=== PATIENT | female | born 1945 | race Caucasian/White ===

== ENCOUNTER 2024-07-03 11:01 | Outpatient (CLI) | payer MEDICARE, SELFPAY ==
[2024-07-03 16:13] LABS: Coronavirus 19, PCR Not Detected (NotDetected); Influenza A, PCR Not Detected (NotDetected); Influenza B, PCR Not Detected (NotDetected)
[2024-07-03 16:34] LABS: Basophils % 0.6 % (0.1-2.0); Eosinophils # 0.1 K/mm3 (0.0-0.4); Eosinophils % 2.2 % (0.1-12.0); Hematocrit 45.8 % (37.0-47.0); Hemoglobin 15.6 g/dL (12.2-16.2); Lymphocytes # 1.1 K/mm3 (0.7-4.5); Lymphocytes % 18.1 % (10-50); Mean Corpuscular HGB Conc 34.1 g/dL (31.8-35.4); Mean Corpuscular Hemoglobin 30.1 pg (27.0-31.2); Mean Corpuscular Volume 88.4 fl (81-99); Mean Platelet Volume 7.9 fl (7.4-10.4); Monocytes # 0.6 K/mm3 (0.1-1.0); Monocytes % 8.8 % (1.7-9.3); Neutrophils # 4.4 K/mm3 (1.8-7.8); Neutrophils % 70.2 % (37.0-80.0); Platelet Count 283 K/mm3 (142-424); Red Blood Count 5.18 M/mm3 (4.20-5.40); Red Cell Distribution Width 14.4 % (11.5-17.5); White Blood Count 6.2 K/mm3 (4.8-10.8)
[2024-07-03 17:10] LABS: Albumin Level 4.6 g/dl (3.5-5.0); Chloride 105 mmol/L (98-107); Potassium 4.2 mmoL/L (3.5-5.1)
[2024-07-03 17:12] LABS: Alanine Aminotransferase 14 U/L (12-78); Aspartate Amino Transferase 26 U/L (14-36); Blood Urea Nitrogen 13 mg/dl (7-17); Carbon Dioxide 27 mmol/L (22.0-30.0); Estimated Glomerular Filt Rate 53 ml/min (>60); GFR (African American) 65 ML/MIN (>60)
[2024-07-03 17:13] LABS: Albumin/Globulin Ratio 1.5 (1.1-1.8); Alkaline Phosphatase 123 U/L (38-126); Bilirubin,Total 0.7 mg/dl (0.2-1.3); Calcium 10.2 mg/dl (8.4-10.2); Globulin 3.1 g/dL (1.3-3.2); Glucose 117 mg/dl (74-100); Total Protein,Serum 7.7 g/dl (6.3-8.2)
[2024-07-03 17:25] LABS: Anion Gap 11.2 mEq/L (5-15); Sodium 139 mmol/L (136-145)
[2024-07-03 17:36] LABS: 25-OH Vitamin D, Total 22.9 ng/mL (30-100)
[2024-07-04 03:34] LABS: Thyroid Stimulating Hormone 4.06 uIU/mL (0.465-4.68)
== END 2024-07-03 23:59 | disposition home or self-care (01) ==
LOC: LAB.DROPOF 07-04 11:02
PROVIDERS: PCP Family Medicine; Visit Provider Family Medicine
DX: E03.9 Hypothyroidism, unspecified (principal); R06.02 Shortness of breath; R05.9 Cough, unspecified; E55.9 Vitamin D deficiency, unspecified
CPT/HCPCS: 80053; 82306; 84443; 85025; 87636

== ENCOUNTER 2024-11-15 11:37 | Outpatient (CLI) | payer MEDICARE, SELFPAY ==
--- NOTE | 2024-11-15 | CA_ITS ---
APPROVED REPORT Exam: Pharmacologic Technologist: Leeann Hanna Ht: 5 ft 6 in Wt: 163 lbs BSA: 1.83 m2 HR: 71 bpm BP: 153/83 mmHg Stress Test Details Test: Lexiscan HR Resting HR: 71 bpm Max Heart Rate (APMHR): 139.950972 bpm Max HR Achieved: 89 bpm Target HR (85% APMHR): 118.307339 bpm % of APMHR: 64.03 Recovery HR: 86 bpm BP Resting BP: 153.0/83.0 mmHg Max BP: 163.0/82.0 mmHg Recovery BP: 159.0/82.0 mmHg ECG Resting ECG: Normal sinus rhythm Stress ECG Conclusion Symptoms: None Arrhythmias/Ectopy: Rare multifocal PVC's ST-T Changes: < 1.[address] segment changes Conclusion: Non-diagnostic Lexiscan stress test. Electronically signed by : Crystal Mcnamara MD 11/16/2024 12:35:28
--- NOTE | 2024-11-15 11:43 | NM_ITS ---
APPROVED REPORT Exam: Nuclear Stress Test Indication: dysrhythmia, sob, palpitations, fatigue Patient Location: Outpatient Stress Tech: Leeann Hanna Ht: 5 ft 6 in Wt: 160 lbs Bra Size: d HR: 71 bpm BP: 153/83 mmHg BSA: 1.82 m2 TID: 1.22 BMI: 25.8 History: dysrhythmia, sob, palpitations, fatigue Procedure: Patient received 0.4 mg of intravenous Lexiscan, resting heart rate 71 bpm, resting blood pressure 153/83 mmHg, with Lexiscan maximum heart rate achieved was 89 bpm which is % of the maximum predicted heart rate and blood pressure was 163/80 mmHg. With Lexiscan, patient denied any complaint of chest pain. Cardiac Stress and Resting SPECT Images: Cardiac Stress and Resting SPECT images were obtained using technetium 99m Myoview 31.2 mCi stress and 10.17 mCi at rest. Resting and stress imaging in supine and prone positions demonstrate a medium sized, moderate, reversible perfusion defect in the basal lateral LV wall. There is also increase in transient ischemic dilatation ratio (TID 1.22), suggestive of possible multivessel disease or balanced ischemia. Gated imaging demonstrates normal global LV systolic function. LVEF is calculated at 50%. Conclusion: Medium sized, moderate, reversible perfusion defect in the basal lateral LV wall. Findings are suggestive of reversible ischemia. There is also increase in transient ischemic dilatation ratio (TID 1.22), suggestive of possible multivessel disease or balanced ischemia. Gated imaging demonstrates normal global LV systolic function. LVEF is calculated at 50%. Electronically signed by : Crystal Mcnamara MD 11/16/2024 12:30:29
[2024-11-15] MEDS: SODIUM CHLORIDE 0.9% 10ML SYR (RAD ONLY) 10 ML IV ×2 (12:05→13:45)
--- NOTE | 2024-11-15 12:20 | CA_ITS ---
APPROVED REPORT EXAM: Comprehensive 2D, Doppler, and color-flow Echocardiogram Seasonal Package Handler: Елена Lundberg RVT Ht: 5 ft 6 in Wt: 163lbs BSA: 1.83 BP: 147/79 mmHg Indications: DYSPENA,COPD,MURMUR,FATIGUE 2D Dimensions LA Volume 61.60 mL LA Volume Index 33.48 mL/m2 (M/F) 16-34 M-Mode Dimensions RVDd 2.25 cm (0.9-2.6) LA Diam 3.92 cm (1.9-4.0) LVDd 4.34 cm (3.5-5.7) LVDs 3.01 cm (3.5-5.7) IVSd 0.76 cm (0.6-1.1) PWd 0.56 cm (0.6-1.1) EF (Teich) 58.40% FS 30.60% EDV (Teich) 84.90 mL TAPSE 2.62 (<1.7) ESV (Teich) 35.30 mL LV Diastology E Decel Time 227 (160-240 msec) E/A Ratio 0.9 Aortic Valve ALEKSANDR Index 1.35 cm2/m2 AoV Peak Garirck. 161.0 (50-130 cm/s) AI PHT 667.00 ms AO Peak GR. 10.30 mmHg AO Mean GR. 5.40 (<5 mmHg) AO VTI 32.9 (18-25 cm) ALEKSANDR (VTI) 2.54 (2.5-4.5 cm2) Mitral Valve MV E Max Garrick. 94.0 (40-130 cm/s) MV A Velocity 106.0 (40-130 cm/s) E/A Ratio 0.89 MV PHT 66.0 ms Pulmonary Valve PV Peak Velocity 72.0 (50-150 cm/s) Tricuspid Valve TR P. Velocity 403.00 cm/s RAP Estimate 10.00 mmHg RVSP 74.90 mmHg Left Ventricle The left ventricle is normal size. The left ventricular systolic function is normal. The left ventricular ejection fraction is within the normal range. There is increased LV wall thickness. There is normal LV segmental wall motion. Transmitral Doppler flow pattern suggests impaired LV relaxation. LVEF is 55%. Right Ventricle The right ventricle is normal size. The right ventricular systolic function is normal. Atria The left atrium size is normal. The right atrium size is normal. 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 Aortic Valve The aortic valve is mildly thickened. There is no aortic valvular stenosis. Mild aortic regurgitation. Mitral Valve The mitral valve is normal in structure. No evidence of mitral valve stenosis. Trace mitral regurgitation. Tricuspid Valve Tricuspid valve is grossly normal in structure and function. Mild tricuspid regurgitation. Elevated RVSP 45-50 mmHg. Pulmonic Valve The pulmonary valve is normal in structure. Trace pulmonic regurgitation. Great Vessels The aortic root is normal in size. IVC is normal in size and collapses >50% with inspiration. Pericardium There is no pericardial effusion. Other Information Study Quality: Fair Conclusion Normal biventricular size and systolic function. Mild AI, mild TR. Elevated RVSP 45-50 mmHg. 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 Electronically signed by : Crystal Mcnamara MD 11/23/2024 23:03:48
[2024-11-15] MEDS: REGADENOSON 0.4MG/5ML SYRINGE 0.4 MG IV (13:45)
[2024-11-15] MEDS: ISOTOPE MYOVIEW (PER STUDY) 1 DOSE IV (14:18)
== END 2024-11-15 23:59 | disposition home or self-care (01) ==
LOC: RAD 11:38
PROVIDERS: PCP Family Medicine; Visit Provider Physician Assistant
DX: R06.00 Dyspnea, unspecified (principal); R01.1 Cardiac murmur, unspecified; R53.83 Other fatigue
CPT/HCPCS: 78452; 93017; 93018; 93306; A9502; J2785

== ENCOUNTER 2024-11-21 12:34 | Outpatient (CLI) | payer MEDICARE, SELFPAY ==
--- NOTE | 2024-11-21 12:37 | XR_ITS ---
FINAL REPORT CLINICAL HISTORY: dyspnea,fatigue FINDINGS: 2 views of the chest were obtained . The heart is normal in size. The mediastinum is within normal limits. There is mild scarring at the right lung base. Emphysematous changes are seen. The lungs are otherwise clear. There is no pneumothorax. Osseous structures are unremarkable. IMPRESSION: No acute cardiopulmonary process. Reviewed, Interpreted and Dictated by Rafita Romo MD Transcribed by Carla Clark Authenticated and [facility]
== END 2024-11-21 23:59 | disposition home or self-care (01) ==
LOC: RAD 12:35
PROVIDERS: PCP Family Medicine; Visit Provider Physician Assistant
DX: R01.1 Cardiac murmur, unspecified (principal); R53.83 Other fatigue; R06.00 Dyspnea, unspecified
CPT/HCPCS: 71046

== ENCOUNTER 2024-12-12 07:39 | Day surgery (SDC) | payer MEDICARE, SELFPAY ==
[2024-12-12] VITALS (11 sets, daily range): BP systolic 116–136; BP diastolic 66–88; PULSE 67–78; RESP 16–20; TEMP 36.9; O2SAT 85–100; BMI 26.4
--- NOTE | 2024-12-12 07:03 | IR_ITS ---
APPROVED REPORT Patient Location: Outpatient PROCEDURES Left heart catheterization Left ventriculogram Selective coronary angiogram INDICATION Angina pectoris, Abnormal stress test Informed consent was obtained prior to the procedure. COMPLICATIONS none Estimated Blood Loss: less than 10ml TECHNIQUE One percent lidocaine used to anesthetize the right anterior aspect of the wrist. The right radial artery was accessed via the Seldinger technique. A 6 Serbian sheath was placed in the right radial artery. 2.5 mg of Verapamil, 800 mcg of nitroglycerin, 1mg Lidocaine and 5000 U Heparin were given through the arterial sheath. The papa catheter was also used to perform left heart catheterization, left ventriculogram and selective coronary angiogram. At the end of the procedure the sheath was removed good hemostasis was achieved using Traclet band, patient was transferred to the postop holding area in stable condition. ANGIOGRAPHIC RESULTS The left main artery Normal The left anterior descending artery Has diffuse proximal and mid vessel 20 to 30% stenoses The circumflex artery Nondominant and has 20 to 30% mid vessel stenoses The right coronary artery Dominant with proximal and mid vessel 10 to 20% stenoses The MERRILL ventriculogram reveals Normal 65% The left ventricular end-diastolic pressure 15 mmHg IMPRESSION Mild nonflow limiting coronary artery disease Normal ejection fraction Normal LVEDP PLAN 1. Medical management 2. Evaluation of noncardiac symptoms Electronically signed by : Norberto Sanchez MD 12/12/2024 10:49:19
[2024-12-12 08:18] LABS: Basophils % 0.5 % (0.1-2.0); Eosinophils # 0.6 K/mm3 (0.0-0.4); Eosinophils % 7.7 % (0.1-12.0); Hematocrit 44.3 % (37.0-47.0); Hemoglobin 14.8 g/dL (12.2-16.2); Lymphocytes # 1.7 K/mm3 (0.7-4.5); Lymphocytes % 21.6 % (10-50); Mean Corpuscular HGB Conc 33.4 g/dL (31.8-35.4); Mean Corpuscular Hemoglobin 29.2 pg (27.0-31.2); Mean Corpuscular Volume 87.5 fl (81-99); Mean Platelet Volume 9.6 fl (7.4-10.4); Monocytes # 0.8 K/mm3 (0.1-1.0); Monocytes % 10.2 % (1.7-9.3); Neutrophils # 4.6 K/mm3 (1.8-7.8); Neutrophils % 59.6 % (37.0-80.0); Platelet Count 268 K/mm3 (142-424); Red Blood Count 5.06 M/mm3 (4.20-5.40); Red Cell Distribution Width 13.4 % (11.5-17.5); White Blood Count 7.8 K/mm3 (4.8-10.8)
[2024-12-12 08:28] LABS: Blood Urea Nitrogen 12 mg/dl (7-17); Calcium 10.1 mg/dl (8.4-10.2); Carbon Dioxide 31 mmol/L (22.0-30.0); Chloride 105 mmol/L (98-107); Creatinine Clearance Estimated 52 mL/min (50-200); Estimated Glomerular Filt Rate 60 ml/min (>60); GFR (African American) 73 ML/MIN (>60); Glucose 89 mg/dl (74-100); Sodium 140 mmol/L (136-145)
[2024-12-12] MEDS: HEPARIN 1,000 UNITS/ML 10ML VIAL (CATH LAB) 10000 UNIT IV (10:25)
[2024-12-12] MEDS: VERAPAMIL 2.5MG/ML 2ML VIAL 2.5 MG IV (10:25)
[2024-12-12] MEDS: LIDOCAINE 1% 10ML MDV 20 ML IJ (10:25)
[2024-12-12] MEDS: diphenhydrAMINE 50MG/ML VIAL 50 MG IV (10:26)
[2024-12-12] MEDS: 0.9 % SODIUM CHLORIDE 500 ML 25 ML IV (10:26)
[2024-12-12] MEDS: HEPARIN 1,000 UNITS/500ML NS (CATH LAB) 3000 UNIT IV (10:26)
[2024-12-12] MEDS: NITROGLYCERIN 800MCG/8ML SYR (CATH LAB) 800 MCG IA (10:27)
[2024-12-12] MEDS: MIDAZOLAM HCL 1MG/ML 5ML VIAL 1 MG IV (10:46)
[2024-12-12] MEDS: FENTANYL 100MCG/2ML VIAL 25 MCG IV (10:47)
--- NOTE | 2024-12-12 12:20 | SUR.PHASEII ---
Pt. ambulated to restroom with standby assistance.
[2024-12-12] MEDS: IOPAMIDOL-370 (76%);100ML BOTTLE 60 ML IV (14:26)
== END 2024-12-12 13:55 | disposition home or self-care (01) ==
PROVIDERS: PCP Family Medicine; Visit Provider Internal Medicine
DX: I25.118 Atherosclerotic heart disease of native coronary artery with other forms of angina pectoris (principal); R94.39 Abnormal result of other cardiovascular function study; R53.83 Other fatigue; E55.9 Vitamin D deficiency, unspecified; Z79.82 Long term (current) use of aspirin; Z79.899 Other long term (current) drug therapy; R06.02 Shortness of breath; J44.9 Chronic obstructive pulmonary disease, unspecified; E03.9 Hypothyroidism, unspecified; E53.8 Deficiency of other specified B group vitamins
CPT/HCPCS: 80048; 85025; 93458; 99152; C1725; C1769; J1200; J1644; J3010; Q9967